=== PATIENT | male | born 1950 | race Caucasian/White ===

== ENCOUNTER 2016-11-30 10:23 | Emergency (ER) | payer OTHER ==
[~2016-11-30] VITALS: Ht 177.8 cm; Wt 97.4 kg
[2016-11-30 10:28] VITALS: BP 118/74; PULSE 72; TEMP 36.6; O2SAT 95; Ht 177.8 cm; Wt 97.4 kg
[2016-11-30] MEDS ORDERED: LISI-725 PO (10:40)
[2016-11-30] MEDS ORDERED: ASPI325T4 PO (10:40)
[2016-11-30] MEDS ORDERED: METO-217 PO (10:40)
[2016-11-30] MEDS ORDERED: ATOR-26 PO (10:40)
[2016-11-30] MEDS ORDERED: CEPH500C2 PO (10:58)
--- NOTE | 2016-11-30 17:31 | EMERGENCY ROOM VISIT NOTE ---
ED Visit Note First contact with patient: 10:45 Chief Complaint: Tick bite. History of Present Illness: Mr. Heard is a 66-year-old white male who ambulates into the ED complaining of a tick bite and skin eruption. Patient reports yesterday he removed a tick from the anterior aspect of the left arm and the left lower quadrant. He believes the tick bite was in bed it in the skin of both areas less than 48 hours. Today he noted some mild increase in swelling and redness in the area where the tick was embedded on the left arm and believes there is an associated bulleyes lesion. Currently he has no associated symptoms and denies fevers, chills, sweats, other skin eruptions, headache, dizziness, lightheadedness, chest pain, shortness of breath, abdominal pain, decreased appetite, nausea/vomiting. Review of Systems: As noted above in history of present illness. 8 body systems were reviewed and found to be negative as noted above. Past Medical History: Unspecified heart disease. Current Medications: Lipitor, Toprol, lisinopril, aspirin. Allergies to Medications: Sulfa. Social History: Patient is not currently employed; he feels safe in his home environment; he admits to tobacco use and denies alcohol use. Physical Examination: Vital Signs: Date Time Temp Pulse Resp B/P Pulse Ox O2 Delivery O2 Flow Rate FiO2 11/30/16 10:28 36.6 72 20 118/74 95 Room Air GENERAL: 66-year-old female in mild to moderate distress due to pain, nontoxic- appearing, afebrile and hemodynamically stable. NEUROLOGICAL: Awake, alert and oriented to person, place and time. Answering questions appropriately and following commands. Normal gait. Good hand eye coordination. No focal motor sensory deficits. SKIN: Warm, dry and pink. Left Lower Quadrant: Shows a small area of erythema that surrounds a scab like structure. There is no lymphangitis. He has not tender to palpation. The skin is not hot to the touch and there does not appear to be any abscess. Left Upper Extremity: Shows a 4 cm zone of erythema just distal to the antecubital fossa. This is indurated but not fluctuant. There is no lymphangitis. The rash does not appear as a bull's-eye lesion. It is mildly tender to palpation and warm to the touch. The skin does not appear grossly cellulitic. HEENT: Atraumatic and normocephalic. THORAX: Lungs sounds are clear to auscultation and equal bilaterally with symmetrical chest wall. HEART: Regular rate and rhythm. No gallops, rubs or murmurs are appreciated. ABDOMEN: Flat, soft and nontender. Positive bowel sounds in all quadrants. No guarding, rigidity or organomegaly. EXTREMITIES: Moves all extremities well on command and with purpose. All distal neurovascular statuses are intact and equal bilaterally. ED Course: Patient is assessed as noted above. Patient's area of erythema on the left arm was demarcated with a pen line. Patient family members were educated about today's findings and instructed on his treatment plan; they verbalizes understanding and agreement with this plan. Clinical Impression: Tick bite. Mild cellulitis of the left arm. Decision-Making: Patient is assessed as noted above. Family members express concerns for possible Lyme's disease but this does not appear to be a Lyme's rash. It appears more cellulitic in nature. He has no somatic complaints at this time. Initially my differential diagnosis I considered myocellulitis but I did consider Lyme's disease as well as allergic hives. Disposition: Patient discharged home in stable condition accompanied by family member; prior to departure he was reassessed and remained pain-free. Plan: Patient was encouraged use ibuprofen or acetaminophen as needed for pain. Patient was prescribed Keflex 500 mg 4 times a day for 10 days. Patient was encouraged to follow-up with family physician or return to the ED in 36-48 hours for recheck. Patient family members were educated on worsening signs of infection and was encouraged to come back to the ED for worsening signs of infection or any new/ concerning symptoms.
== END 2016-11-30 11:05 | disposition home or self-care (01) ==
LOC: C.EDB 10:26 → C.EDC 11:05
DX: L03.114 Cellulitis of left upper limb (principal); S41.152A Open bite of left upper arm, initial encounter; S30.861A Insect bite (nonvenomous) of abdominal wall, initial encounter; W57.XXXA Bitten or stung by nonvenomous insect and other nonvenomous arthropods, initial encounter; Z79.82 Long term (current) use of aspirin; Z79.899 Other long term (current) drug therapy

== ENCOUNTER → 2017-05-07 | Outpatient (CLI) | payer OTHER ==
[~2017-05-07] MED LIST: ASPI325T4 PO; ATOR-26 PO; LISI-725 PO; METO-217 PO
[2017-05-07 12:41] LABS: BASO % 0.9 %; BASO ABS # 0.09 K/uL (0-0.2); COMPLETE YES; HEMATOCRIT 46.9 % (42-52); IG% 0.3 %; LYMPH ABS # 2.59 K/uL (1.2-3.4); MEAN CELL VOLUME 92.9 fL (80-100); MEAN CORPUSCULAR HEMOGLOBIN 30.3 pg (25-34); MEAN CORPUSCULAR HGB CONC 32.6 g/dl (32-36); MEAN PLATELET VOLUME 11.2 fL (7.4-10.4); MONO % 10.1 %; NEUT % 59.7 %; PLATELET COUNT 225 K/uL (130-400); RED BLOOD COUNT 5.05 M/uL (4.7-6.1); WHITE BLOOD COUNT 9.97 K/uL (4.8-10.8)
[2017-05-07 12:54] LABS: ESTIMATED AVERAGE GLUCOSE 148 mg/dl; HA1C FLAG Normal (Normal)
[2017-05-07 13:08] LABS: ALT/SGPT 32 U/L (12-78); AST/SGOT 20 U/L (15-37); BLOOD UREA NITROGEN 18 mg/dl (7-18); BUN/CREATININE RATIO 16.1 (10-20); CALCIUM 9.1 mg/dl (8.5-10.1); CARBON DIOXIDE 29 mmol/L (21-32); CHLORIDE 103 mmol/L (98-107); GLUCOSE 123 mg/dl (70-99); POTASSIUM 4.4 mmol/L (3.5-5.1); SODIUM 137 mmol/L (136-145)
[2017-05-07 13:18] LABS: ALKALINE PHOSPHATASE 109 U/L (45-117); CHOLESTEROL 213 mg/dl (0-200); CHOLESTEROL/HDL RATIO 6.1; HDL CHOLESTEROL 35 mg/dl; PROSTATE SPECIFIC ANTIGEN 0.373 ng/ml (0.000-4.000); TRIGLYCERIDES 576 mg/dl (0-150)
--- NOTE | 2017-05-18 11:39 | CODING QUERY MEDICAL NECESSITY ---
CQSUPPORTING DIAGNOSIS NEEDED A supporting diagnosis is required for the test/procedure performed on this patient in order for us to be reimbursed by the patient's insurance. Please provide a supporting diagnosis for the following test/procedure listed below next to the test name along with your signature. *If there is no additional diagnosis for this patient that would support the following test/procedure please document that below next to the test/procedure. Test(s)/Procedure(s) that require a supporting diagnosis: DOS 05/07/17 PROSTATE SPECIFIC TEST Provider Signature: Date: Thank you Leticia Su [employer] Once completed, please kindly fax back to [phone] For questions please call [phone]
== END | disposition home or self-care (01) ==
LOC: C.LABPVFM 08:20
PROVIDERS: ATTEND Internal Medicine Geriatric Medicine
DX: I25.10 Atherosclerotic heart disease of native coronary artery without angina pectoris (principal); I10 Essential (primary) hypertension; E78.5 Hyperlipidemia, unspecified; E11.9 Type 2 diabetes mellitus without complications; E55.9 Vitamin D deficiency, unspecified; Z12.5 Encounter for screening for malignant neoplasm of prostate

== ENCOUNTER → 2017-11-12 | Outpatient (CLI) | payer OTHER ==
[2017-11-12 13:41] LABS: HEMOGLOBIN A1C 6.8 % (4.5-5.6)
[2017-11-12 14:34] LABS: BLOOD UREA NITROGEN 23 mg/dl (7-18); CALCIUM 9.4 mg/dl (8.5-10.1); CARBON DIOXIDE 30 mmol/L (21-32); CHOLESTEROL 183 mg/dl (0-200); CREATININE 1.13 mg/dl (0.60-1.40); GLUCOSE 125 mg/dl (70-99); POTASSIUM 4.5 mmol/L (3.5-5.1); SODIUM 134 mmol/L (136-145)
[2017-11-12 14:41] LABS: LDL CHOLESTEROL CALCULATED 89 mg/dl
== END | disposition home or self-care (01) ==
LOC: C.LABPVFM 08:44
PROVIDERS: ATTEND Internal Medicine Geriatric Medicine
DX: I25.10 Atherosclerotic heart disease of native coronary artery without angina pectoris (principal); I10 Essential (primary) hypertension; E11.9 Type 2 diabetes mellitus without complications; E78.5 Hyperlipidemia, unspecified; F17.200 Nicotine dependence, unspecified, uncomplicated; Z11.59 Encounter for screening for other viral diseases

== ENCOUNTER 2023-07-20 23:10 | Observation (INO) ==
[2023-07-21 00:27] LABS: Albumin Globulin Ratio 1.5 (0.9-2); Albumin Level 3.7 gm/dl (3.4-5.0); BUN Creatinine Ratio 20.7 (10-20); Bilirubin,Total 0.7 mg/dl (0.2-1.0); Calcium 8.7 mg/dl (8.6-10.3); Creatinine Clr Calc Pharmacy 64.7 ml/min; Est GFR (African American) 75.9 ml/min; Est GFR (Non-African American) 65.5 ml/min; Globulin 2.5 gm/dl (2.5-4.0); Potassium 3.9 mmol/L (3.5-5.1); Total Protein 6.2 gm/dl (6.0-8.3)
[2023-07-21 00:34] LABS: Appearance Urine Cloudy (Clear); Bacteria Urine Automated Negative (Negative); Bilirubin Urine Negative (Negative); Blood Urine 2+ (Negative); Color Urine Dark Yellow; Epithelial Cell Urine Auto >30 /lpf (0-5); Glucose Urine UA Negative (Negative); Ketones Urine Trace (Negative); Leukocyte Esterase Urine Trace (Negative); Nitrite Urine Negative (Negative); Protein Urine 2+ (Negative); RBC Urine Automated 0-4 /hpf (0-4); Specific Gravity Urine 1.026 (1.000-1.030); Urobilinogen Urine Negative (Negative)
[2023-07-21 00:38] LABS: INR 1.1 (0.9-1.1); Partial Thromboplastin Ratio 1.2; Partial Thromboplastin Time 33.3 Seconds (21.0-31.0)
[2023-07-21 00:41] LABS: Basophils # (auto) 0.02 K/uL (0.00-0.20); Basophils % (auto) 0.5 %; Hematocrit (blood only) 43.7 % (42.0-52.0); Hemoglobin 15.2 g/dl (14.0-18.0); Immature Granulocytes # (auto) 0.02 K/uL (0.01-0.20); Immature Granulocytes % (auto) 0.5 %; Lymphocytes # (auto) 0.15 K/uL (1.20-3.40); Lymphocytes % (auto) 3.9 %; Mean Corpuscular Hemoglobin 30.6 pg (25.0-34.0); Mean Corpuscular Hgb Conc 34.8 g/dL (32.0-36.0); Mean Corpuscular Volume 87.9 fL (80.0-100.0); Mean Platelet Volume 12.2 fL (9.4-12.4); Monocytes # (auto) 0.25 K/uL (0.11-0.59); Monocytes % (auto) 6.5 %; Neutrophils # (auto) 3.38 K/uL (1.40-6.50); Neutrophils % (auto) 88.6 %; Platelet Count 37 K/uL (130-400); Platelet Estimate Decreased (Normal); RDW Coefficient of Variation 13.2 % (11.5-14.5); RDW Standard Deviation 42.5 fL (36.4-46.3); Red Blood Count 4.97 M/uL (4.70-6.10); White Blood Count 3.82 K/ul (4.8-10.8)
[2023-07-21] MEDS ORDERED: SODIUM CHLORIDE 0.9% 1,000 ML IV ONE ×2 (01:00→02:51)
[2023-07-21] MEDS ORDERED: ACETAMINOPHEN 500 MG TAB PO STA (01:00)
[2023-07-21] MEDS ORDERED: HYDROCORTISONE SOD SUCCINATE 100 MG/2 ML VIAL IV STA (01:38)
[2023-07-21 02:00] LABS: Procalcitonin 0.55 ng/ml (0-0.5)
[2023-07-21 02:28] LABS: Adenovirus PCR Not Detected (NotDetected); Bordetella parapertussis PCR Not Detected (NotDetected); Bordetella pertussis PCR Not Detected (NotDetected); Chlamydia pneumoniae PCR Not Detected (NotDetected); Coronavirus 229E PCR Not Detected (NotDetected); Coronavirus CoV-2 (COVID19)PCR Not Detected (NotDetected); Coronavirus HKU1 PCR Not Detected (NotDetected); Coronavirus NL63 PCR Not Detected (NotDetected); Coronavirus OC43PCR Not Detected (NotDetected); Human Metapneumovirus PCR Not Detected (NotDetected); Influenza A PCR Not Detected (NotDetected); Influenza B PCR Not Detected (NotDetected); Mycoplasma pneumoniae PCR Not Detected (NotDetected); Parainfluenza Virus 1 PCR Not Detected (NotDetected); Parainfluenza Virus 2 PCR Not Detected (NotDetected); Parainfluenza Virus 3 PCR Not Detected (NotDetected); Parainfluenza Virus 4 PCR Not Detected (NotDetected); Respiratory Syncytial VirusPCR Not Detected (NotDetected); Rhinovirus/Enterovirus PCR Not Detected (NotDetected)
[2023-07-21 02:31] LABS: Lyme Ab IgG w/WB Rflx Negative (Negative); Lyme Ab IgM w/WB Rflx Negative (Negative)
--- NOTE | 2023-07-21 04:11 | History & Physical Report ---
Date of Service July 21, 2023 Assessment & Plan (1) Acute adrenal crisis: Plan: -Addisonian crisis likely precipitated by infectious cause, suspected tickborne illness given clinical history -Borderline hypotensive on admission, hemodynamically stable at present with BP 100s/60s -Hydrocortisone 100 mg IV given in ER, will continue HTC 100 mg IV q8h for now -S/p 2L NSS, continue NSS fluid repletion at maintenance (2) Febrile illness: Plan: -Pt's symptoms appear consistent with tickborne illness profile although initial panel is negative -We will empirically cover with doxycycline 100 mg IV BID + ceftriaxone 2g IV daily for now -UCx, BCx pending -Anaplasma PCR ordered given pt's transaminitis, leukopenia, thrombocytopenia and recent tick bites -Tylenol PRN fever (3) Thrombocytopenia: Plan: -Plts 37 on admission -No signs of acute bleeding at present, Hgb stable -Possibly secondary to tickborne illness causing consumptive coagulopathy vs ITP -Expect improvement with steroids if ITP -Peripheral smear ordered -Monitor CBC (4) Hyponatremia: Plan: -Na 128 on admission -Multifactorial- minimal oral intake for 1+ day and current Addisonian crisis -NSS repletion ongoing -Monitor BMP (5) Leukopenia: Plan: -WBC 3.8 on admission -Possibly due to phagocytic process of tickborne illness -Monitor CBC -Peripheral smear pending (6) Transaminitis: Plan: -AST 67 on admission -Likely reactive transaminitis to acute illness (7) Diabetes mellitus type 2 in obese: Plan: -BSG stable on admission -Does not appear to be on any antiglycemic agents -DM otherwise well controlled, A1C 6.7% in 11/2022 -Lant, SSI- may need dose escalation for steroid hyperglycemia (8) Hypertension: Plan: -BP borderline hypotensive given current adrenal crisis -Holding home lisinopril, metoprolol -Resume antihypertensives as adrenal crisis stabilizes (9) Dyslipidemia: Plan: -Continue atorvastatin (10) Arteriosclerotic coronary artery disease: Plan: -No ACS concern at present -Continue atorvastatin -Holding lisinopril and metoprolol as above -Holding aspirin due to thrombocytopenia (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 Pt sleeping on evaluation, history provided by family at bedside. Pt reportedly had chills on 07/18 and symptoms progressed on 07/19 to include fever w/ Tmax 103 F, fatigue, generalized myalgias, tremors, nonproductive cough, reduced appetite w/ minimal oral intake. Symptoms worsened until family brought him to ER. Pt did not take stress dose steroids during this time. He never had similar symptoms before. Of note, pt has had multiple tick bites since this past summer and family had removed at least 2 ticks within the last month. Pt arrived to ER with borderline BP 100s/60s. Initial evaluation significant for WBC 3.82, Plts 37, Na 128, AST 67, PCT 0.55. Initial tickborne panel negative, RVP negative, CXR unremarkable. UA grossly infected albeit with epithelial cells. ER interventions include Tylenol 1000 mg IV, 2L NSS bolus, hydrocortisone 100 mg IV. Allergies Allergy/AdvReac Type Severity Reaction Status Date / Time amoxicillin Allergy Mild hemorrhoids Verified 07/21/23 08:43 Sulfa (Sulfonamide Allergy Mild nose bleeds Verified 07/21/23 08:43 Antibiotics) Home Medications Medication Instructions Recorded Confirmed Type aspirin 325 mg tablet,delayed 325 mg PO QAM 06/21/19 07/21/23 History release cholecalciferol (vitamin D3) 25 2,000 units PO QAM 09/23/19 07/21/23 History mcg (1,000 unit) capsule hydrocortisone 5 mg tablet 15 mg PO .COMPLEX 10/05/19 07/21/23 History levothyroxine 112 mcg capsule 112 mcg PO DAILY #90 caps 06/13/22 07/21/23 Rx metoprolol succinate 50 mg 50 mg PO QAM #90 tabs 07/29/22 07/21/23 Rx tablet,extended release 24 hr (Toprol XL) atorvastatin 80 mg tablet 80 mg PO QAM #90 tabs 08/04/22 07/21/23 Rx lisinopril 20 mg tablet 10 mg (1/2 x 20 mg) PO QAM #45 tabs 10/13/22 07/21/23 Rx metformin 500 mg tablet,extended See Rx Instructions PO .COMPLEX 12/29/22 07/21/23 Rx release 24 hr #270 tabs Past Med/Surg History Medical History Arteriosclerotic coronary artery disease (~2002) Borderline diabetes Central hypothyroidism Dyslipidemia Hypertension Osteoarthritis Past myocardial infarction (~2002) Pituitary macroadenoma (~09/2019) Vitamin D deficiency Surgical History History of cataract surgery History of hernia repair History of tooth extraction Status post transsphenoidal pituitary resection (~09/2019) Family History Mother Heart disease Myocardial infarction Other No family history of adverse response to anesthesia Denies family history of Ovarian cancer Prostate cancer Breast cancer Colorectal cancer Social History Smoking Status: Current every day smoker Tobacco Type: Cigarettes Age Started Using Tobacco: 16; packs per day: 0.5; Cigarettes Per Day: 20; Second Hand Exposure: Yes ( smokes); Do You Dip or Chew Tobacco: No; Hx Alcohol Use: No Hx Substance Use: No Preferred Language: Georgian Communication Ability: Effective Visual Impairment: Limited Hearing Ability: Hard of Hearing Reservations Clerk Required: No Beliefs That Will Affect Care: None marital status: Current Living Situation: Spouse current occupational status: retired 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 How many Children do You have: 3 Feels Safe at Home: Yes Childhood Exposure to Second-Hand Smoke: No Diet: regular caffeine: Yes Dental Care, Regularly: No Physical Activity Frequency: Does not Exercise Seatbelt Use: never Sunscreen Use: No Assistive Devices: Denture - Upper, Denture - Lower and Glasses Review of Systems Review of Systems: Per HPI/Subjective Physical Exam Physical Exam: General: sleeping comfortably HEENT: no palpable cervical lymphadenopathy CV: RRR, normal S1, S2, no murmurs Resp: CTAB, unlabored respirations Skin: francisco complexion Results & Data Results & Data Vital Signs (Past 12 Hours) Vital Signs Temp Pulse Pulse Resp BP BP Pulse Ox 07/21/23 02:33 37.4 C 07/21/23 02:30 79 21 102/56 L 92 07/21/23 02:00 83 25 H 92 07/21/23 02:00 107/59 L 07/21/23 01:30 125/67 07/21/23 01:30 87 22 93 07/21/23 01:00 104/72 07/21/23 01:00 91 H 17 93 07/21/23 00:30 93 H 23 93 07/21/23 00:30 113/59 L 07/21/23 00:24 39 C H 94 H 20 114/63 92 07/21/23 00:23 92 H 26 H 92 07/21/23 00:23 91 H 07/20/23 23:14 37.8 C H 108 H 20 126/66 96 O2 Del Method 07/21/23 02:33 07/21/23 02:30 07/21/23 02:00 07/21/23 02:00 07/21/23 01:30 07/21/23 01:30 07/21/23 01:00 07/21/23 01:00 07/21/23 00:30 07/21/23 00:30 07/21/23 00:24 Room Air 07/21/23 00:23 07/21/23 00:23 07/20/23 23:14 Room Air Supervising Physician Co-Signing Physician Notes Attending addendum: I have physically seen this patient, have supervised the medical residents activities, and agree with the H&P unless as otherwise noted. Assessment and Plan: Acute adrenal crisis- Underlying trigger probabilities include but not limited to anaplasmosis/of the tickborne illness/ITP/other illness, failure to take stress dosing as outlined by endocrinology Given hydrocortisone 100 mg IV in ED Continue hydrocortisone 100 mg IV every 8 hours Patient status post 2 L normal saline, continue normal saline at 100 mL/h for additional liter Generalized illness- AST 67, platelets 37, sodium 128 and febrile illness, suggestive of anaplasmosis Lyme testing negative Anaplasmosis and babesiosis smear negative at this time Antibody testing for anaplasmosis and VCSS pending Empiric treatment with doxycycline 100 mg IV twice daily and ceftriaxone 2 g IV daily Thrombocytopenia- BioFire negative for viral process Question whether secondary to anaplasmosis Follow serially and ask pathology to review peripheral smear for platelet morphology May need to consult hematology Remaining orders and notations as noted Resident Activity Tracking Resident Involvement: Resident Care Provided Care Provided: Adult Hospital Medicine (8) Hypertension Hypertension type: essential hypertension Qualified Code(s): I10 - Essential (primary) hypertension
--- OUTSIDE RECORDS SUMMARY | 2023-07-21 04:38 | External Medical Summary | Continuity of Care Document ---
Author Name Unknown Organization [address] Address [address] [place] [phone] Care Team Providers Care Nurse Discharge Name Role Phone Rajwinder Bonilla Primary Care Physician [phone] [id number] Date(s): 05/14/23 - 05/14/[address] [place] [address], [facility] [address] [place] [address] [place] [phone] Encounter Diagnosis HTN (hypertension)(Discharge Diagnosis) - 05/13/23 Hypothyroidism(Discharge Diagnosis) - 05/13/23 Panhypopituitarism(Discharge Diagnosis) - 05/13/23 Pituitary macroadenoma(Discharge Diagnosis) - 05/13/23 Body mass index [BMI] 29.0-29.9, adult(Discharge Diagnosis) - 05/14/23 Diabetes mellitus, type II(Discharge Diagnosis) - 05/14/23 Discharge Disposition: Home or Self Care Attending Physician: FRANSISCO Bonilla Shari A Referring Physician: FRANSISCO Bonilla Shari A Allergies, Adverse Reactions, Alerts Substance Reaction Severity Status amoxicillin Not sure Active sulfa drugs Bleeding from nose Mild Active Immunizations Given and Recorded Vaccine Date Status Refusal Reason influenza virus vaccine, inactivated 05/14/23 Give n SARS-CoV-2 (COVID-19) mRNA BNT-162b2 vax 1 05/06/21 Recorded SARS-CoV-2 (COVID-19) mRNA BNT-162b2 vax 2 04/15/21 Recorded tetanus/diphtheria/pertuss, acel (Tdap) 3 05/17/12 Recorded 1Result Comment: 2023-05-12: Historical information-source unspecified 2Result Comment: 2023-05-12: Historical information-source unspecified 3Result Comment: 2023-05-12: Historical information-source unspecified Medications aspirin 325 mg oral delayed release tablet Start: 09/24/19 0:55:00 EST, 1 tab, PO, Daily Start Date: 09/24/19 Status: Ordered atorvastatin 80 mg oral tablet Start: 09/24/19 0:55:00 EST, 1 tab, PO, Daily Start Date: 09/24/19 Status: Ordered hydrocortisone 5 mg oral tablet Start: 12/03/22 8:35:00 EDT, See Instructions, Disp# 450 tab, Refills: 4, TAKE 3 TABLETS BY MOUTH EVERY MORNING , THEN TAKE 1 AND 1/2 TABS AT NOON, Pharmacy: [facility] [id number] Start Date: 12/03/22 Status: Ordered levothyroxine 112 mcg (0.112 mg) oral tablet See Instructions, Disp# 30 tab, Refills: 10, Take 1 tablet by mouth once daily, Brand Medically Necessary, Pharmacy: [id number] Start Date: 10/18/21 Status: Ordered lisinopril 20 mg oral tablet Start: 08/18/22 10:19:00 EST, 45 each, TAKE 1/2 (ONE-HALF) TABLET BY MOUTH IN THE MORNING Start Date: 08/18/22 Status: Ordered MetFORMIN (Eqv-Glucophage XR) 500 mg oral tablet, extended release Start: 05/29/21 13:06:00 EDT Start Date: 05/29/21 Status: Ordered Metoprolol Succinate ER 50 mg oral tablet, extended release Start: 08/18/22 10:19:00 EST, 90 each, TAKE 1 TABLET BY MOUTH ONCE DAILY IN THE MORNING Start Date: 08/18/22 Status: Ordered Vitamin D3 1000 intl units (25 mcg) oral tablet Start: 05/14/23 12:56:00 EDT, 2 tab, PO, Daily Start Date: 05/14/23 Status: Ordered Mental Status 05/14/23 Barriers to Learning one year None evide nt Mandatory Health Literacy Documentation Yes Health Literacy Communication Barriers N ever Primary Language Barbadian Problem List Condition Confirmation Course Effective Dates Status Health Status Informant HTN (hypertension) Confirmed Active Hypothyroidism Confirmed Active Old myocardial infarct Confirmed Active Panhypopituitarism Confirmed Active Pituitary macroadenoma Confirmed Active Smoker Confirmed Active Diabetes mellitus, type II Confirmed Active Diagnosis Diagnosis Type Effective Dates Health Status Clinical Service Informant Hypothyroidism Discharge Diagnosis 05/13/23 Pituitary macroadenoma Discharge Diagnosis 05/13/23 HTN (hypertension) Discharge Diagnosis 05/13/23 Panhypopituitarism Discharge Diagnosis 05/13/23 Body mass index [BMI] 29.0-29.9, adult Discharge Diagnosis 05/14/23 Non-Specified Diabetes mellitus, type II Discharge Diagnosis 05/14/23 Non-Specified Procedures Procedure Date Related Diagnosis Body Site Status Removal 09/17/19 Completed Cataract extraction Compl eted Procedure Completed Tooth extraction Complete d Vital Signs Most recent to oldest [Reference Range]: 1 Height 175.6 cm (05/14/23 12:57 PM) Patient Weight 90.2 kg (05/14/23 12:57 PM) Body Mass Index 29.25 kg/m2 (05/14/23 12:57 PM) Heart Rate 69 bpm (05/14/23 12:57 PM) Respiratory Rate 16 br/min (05/14/23 12:57 PM) Blood Pressure 118/60mmHg (05/14/23 12:57 PM) BP Location # 1 Left Arm (05/14/23 12:57 PM) Social History Social History Type Response Smoking Status Current every day he kym smoker Sex Male Implantable Device List Procedure Provider Procedure Date Device Type Site Unknown Unknown 09/29/19 Unknown Unknown Device Identifier Serial Number Lot or Batch Number Manufacturing Date Expiration Date Distinct Identification Code MRI Safety Implantable Status Assigning Authority Unknown Unknown [id number] Unknown 12/14/21 Unknown Unknown Active Aj garcia Patient Care team information Care Team Personnel Name: FRANSISCO Bonilla Shari A Position: Nurse Pract - Family Med Member Role: Primary Care Provider Address: Address: [address] [place] [address] Care Team Related Persons Name: BYRON ORTIZ Address: home [address] [place] [address], [phone] Name: HENRRY ORTIZ Name: BRAXTON FRIEDMAN
--- OUTSIDE RECORDS SUMMARY | 2023-07-21 04:38 | External Medical Summary | Continuity of Care Document ---
Author Name Unknown Organization [facility] [address] [id number] Care Team Providers Care Probation Agent Name Role Phone Irene Rajwinder Valentín Primary Care Physician [phone] [facility] [id number] Date(s): 05/29/23 - 05/29/23 [facility] [address] [facility] [address] [place] [address] [place] [id number] Discharge Disposition: Home or Self Care Attending Physician: MD Edison, [facility] Allergies, Adverse Reactions, Alerts Substance Reaction Severity [...] 1 AND 1/2 TABS AT NOON, Pharmacy: [id number] Start Date: 12/03/22 Status: Ordered levothyroxine 112 mcg (0.112 mg) oral tablet See Instructions, Disp# 30 tab, Refills: 10, Take 1 tablet by mouth once daily, Brand Medically Necessary, Pharmacy: [id number] Start Date: 10/18/21 Status: Ordered lisinopril 20 [...] PO, Daily Start Date: 05/14/23 Status: Ordered Problem List Condition Confirmation Course Effective Dates Status Health Status Informant HTN (hypertension) Confirmed Active Hypothyroidism Confirmed Active Old myocardial infarct Confirmed Active Panhypopituitarism Confirmed Active Pituitary macroadenoma Confirmed Active Smoker Confirmed Active Diabetes mellitus, type II Confirmed Active Procedures Procedure Date Related Diagnosis Body Site Status Removal 09/17/19 Completed Cataract extraction Compl eted Procedure Completed Tooth extraction Complete d Social History Social History Type Response Smoking Status Current every day he kym smoker Sex Male Implantable Device List Procedure Provider Procedure Date Device Type Site Unknown Unknown 09/29/19 Unknown Unknown Device Identifier Serial Number Lot or Batch Number Manufacturing Date Expiration Date Distinct Identification Code MRI Safety Implantable Status Assigning Authority Unknown Unknown [id number] Unknown 12/14/21 Unknown Unknown Active Prashantk radha Patient Care team information Care Team Personnel Name: FRANSISCO Bonilla Shari A Position: Nurse Pract - Family Med Member Role: Primary Care Provider Address: Address: [address] [place] [address] [place] Care Team Related Persons Name: BYRON ORTIZ Address: home [address] [place] [address], [phone] Name: HENRRY ORTIZ Name: BRAXTON FRIEDMAN
--- OUTSIDE RECORDS SUMMARY | 2023-07-21 04:38 | External Medical Summary | Continuity of Care Document ---
Author Name Unknown Organization [facility] [address] [id number] Care Team Providers Care Sod Stripper Name Role Phone Scott Aguilar Primary Care Physician [phone] [id number] Date(s): 02/11/23 - 02/11/23 [facility] [address] [facility] [address] [address] Discharge Disposition: Home or Self Care Attending Physician: MD Edison, [facility] Referring Physician: DO Aguilar Brian R Allergies, Adverse Reactions, Alerts Substance Reaction Severity Status amoxicillin Not sure Active sulfa drugs Bleeding from nose Mild Active Medications aspirin 325 mg oral delayed release tablet Start: 09/24/19 0:55:00 EST, 1 tab, PO, Daily Start Date: 09/24/19 Status: Ordered atorvastatin 80 mg oral tablet Start: 09/24/19 0:55:00 EST, 1 tab, PO, Daily Start Date: 09/24/19 Status: Ordered dexamethasone 4 mg/mL injectable solution Start: 07/22/22 12:05:00 EST, See Instructions, Disp# 1 each, Refills: 0, 4 mg IM for stress dose (when acutely ill/adrenal crisis), Pharmacy: [id number] Start Date: 07/22/22 Status: Ordered doxycycline hyclate 100 mg oral capsule Start: 08/18/22 10:19:00 EST, 2 each, TAKE 2 CAPSULES BY MOUTH A ONE-TIME DOSE Start Date: 08/18/22 Status: Ordered hydrocortisone 5 mg oral tablet Start: 12/03/22 8:35:00 EDT, See Instructions, Disp# 450 tab, Refills: 4, TAKE 3 TABLETS BY MOUTH EVERY MORNING , THEN TAKE 1 AND 1/2 TABS AT NOON, Pharmacy: [id number] Start Date: 12/03/22 Status: Ordered levothyroxine 112 mcg (0.112 mg) oral tablet See Instructions, Disp# 30 tab, Refills: 10, Take 1 tablet by mouth once daily, Brand Medically Necessary, Pharmacy: [id number] Start Date: 10/18/21 Status: Ordered lisinopril 10 mg oral tablet Start: 09/24/19 0:55:00 EST, 1 tab, PO, Daily Start Date: 09/24/19 Status: Ordered lisinopril 20 mg oral tablet Start: 08/18/22 10:19:00 EST, 45 each, TAKE 1/2 (ONE-HALF) TABLET BY MOUTH IN THE MORNING Start Date: 08/18/22 Status: Ordered MetFORMIN (Eqv-Glucophage XR) 500 mg oral tablet, extended release Start: 05/29/21 13:06:00 EDT Start Date: 05/29/21 Status: Ordered metoprolol succinate 50 mg oral tablet, extended release Start: 09/24/19 0:55:00 EST, 1 tab, PO, Daily Start Date: 09/24/19 Status: Ordered Metoprolol Succinate ER 50 mg oral tablet, extended release Start: 08/18/22 10:19:00 EST, 90 each, TAKE 1 TABLET BY MOUTH ONCE DAILY IN THE MORNING Start Date: 08/18/22 Status: Ordered Problem List Condition Confirmation Course Effective Dates Status Health Status Informant HTN (hypertension) Confirmed Active Hypothyroidism Confirmed Active Old myocardial infarct Confirmed Active Panhypopituitarism Confirmed Active Pituitary macroadenoma Confirmed Active Smoker Confirmed Active Procedures Procedure Date Related Diagnosis Body Site Status Procedure Completed Removal Completed Social History Social History Type Response Smoking Status Current every day he kym smoker Sex Male Implantable Device List Procedure Provider Procedure Date Device Type Site Unknown Unknown 09/29/19 Unknown Unknown Device Identifier Serial Number Lot or Batch Number Manufacturing Date Expiration Date Distinct Identification Code MRI Safety Implantable Status Assigning Authority Unknown Unknown [id number] Unknown 12/14/21 Unknown Unknown Active Prashantk essencen Patient Care team information Care Team Personnel Name: DO Aguilar Brian R Position: Referring Member Role: Primary Care Provider Address: Address: [facility] [address] Care Team Related Persons Name: BYRON ORTIZ Address: [address], [id number] Name: HENRRY ORTIZ Name: BRAXTON FRIEDMAN
[2023-07-21] MEDS ORDERED: GLUCAGON FOR INJ 1 MG VIAL SQ PRN (05:23)
[2023-07-21] MEDS ORDERED: ACETAMINOPHEN 500 MG TAB PO PRN (05:23)
[2023-07-21] MEDS ORDERED: SODIUM CHLORIDE 0.9% 1,000 ML IV SCH (05:23)
[2023-07-21] MEDS ORDERED: CARBOHYDRATES FOR HYPOGLYCEMIA PO PRN (05:23)
[2023-07-21] MEDS ORDERED: DEXTROSE 50% 50 ML SYRINGE IV PRN (05:23)
[2023-07-21] MEDS ORDERED: GLUCOSE 10 TAB/TUBE PO PRN (05:23)
[2023-07-21] MEDS ORDERED: GLUCOSE 40% GEL 15 GM TUBE PO PRN (05:23)
[2023-07-21] MEDS ORDERED: cefTRIAXone SODIUM 2,000 MG in DEXTROSE 5 % MINI-B 50 ML IV SCH (06:00)
[2023-07-21 06:20] LABS: Albumin Globulin Ratio 1.4 (0.9-2); Albumin Level 3.2 gm/dl (3.4-5.0); BUN Creatinine Ratio 18.6 (10-20); Bilirubin,Total 0.6 mg/dl (0.2-1.0); Creatinine Clr Calc Pharmacy 70.4 ml/min; Est GFR (African American) 84.1 ml/min; Est GFR (Non-African American) 72.6 ml/min; Globulin 2.3 gm/dl (2.5-4.0); Potassium 4.1 mmol/L (3.5-5.1); Total Protein 5.5 gm/dl (6.0-8.3)
--- NOTE | 2023-07-21 06:53 | XRay Report ---
XR chest 1V not portable HISTORY: illness COMPARISON: Chest 09/23/2019. FINDINGS: No pneumothorax. No pleural effusions. There are low lung volumes. No new focal lung consol idations to suggest a pneumonia. No evidence for pulmonary edema. The heart remains enlarged. There a re calcifications within the aortic knob. Degenerative changes again noted within the shoulders. IMPRESSION: No significant change compared to the prior study. No acute process. ACT 112: Negative or not required by law. Electronically signed by: Thee Little M.D. 07/21/2023 6:52 AM
[2023-07-21] MEDS: LEVOTHYROXINE SODIUM 112 MCG TABLET PO SCH (07:00)
[2023-07-21] MEDS: DOXYCYCLINE HYCLATE 100 MG in DEXTROSE 5% MINI-B 100 ML IV SCH ×2 (07:00→17:42)
[2023-07-21 07:04] LABS: Hematocrit (blood only) 39.7 % (42.0-52.0); Hemoglobin 13.8 g/dl (14.0-18.0); Mean Corpuscular Hemoglobin 30.8 pg (25.0-34.0); Mean Corpuscular Hgb Conc 34.8 g/dL (32.0-36.0); Mean Corpuscular Volume 88.6 fL (80.0-100.0); Mean Platelet Volume 12.1 fL (9.4-12.4); Platelet Count 29 K/uL (130-400); RDW Coefficient of Variation 13.3 % (11.5-14.5); RDW Standard Deviation 43.5 fL (36.4-46.3); Red Blood Count 4.48 M/uL (4.70-6.10); White Blood Count 3.36 K/ul (4.8-10.8)
--- NOTE | 2023-07-21 07:13 | Hospitalist Progress Note ---
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: Plan (1) Acute adrenal crisis: -Addisonian crisis likely precipitated by infectious cause, suspected tickborne illness given clinical history -Borderline hypotensive on admission, hemodynamically stable at present with BP 100s/60s -Hydrocortisone 100 mg IV given in ER, will continue HTC 100 mg IV q8h for now -S/p 2L NSS, continue NSS fluid repletion at maintenance (2) Febrile illness: -Pt's symptoms appear consistent with tickborne illness profile although initial panel is negative -We will empirically cover with doxycycline 100 mg IV BID + ceftriaxone 2g IV daily for now -UCx, BCx pending -Anaplasma PCR ordered given pt's transaminitis, leukopenia, thrombocytopenia and recent tick bites -Tylenol PRN fever (3) Thrombocytopenia: -Plts 37 on admission, 29 in AM post-admission -No signs of acute bleeding at present, Hgb stable -Possibly secondary to tickborne illness causing consumptive coagulopathy vs ITP -Expect improvement with steroids if ITP -Peripheral smear ordered -Monitor CBC (4) Hyponatremia: -Na 128 on admission -Multifactorial- minimal oral intake for 1+ day and current Addisonian crisis -NSS repletion ongoing -Monitor BMP (5) Leukopenia: -WBC 3.8 on admission -Possibly due to phagocytic process of tickborne illness -Monitor CBC -Peripheral smear pending (6) Transaminitis: -AST 67 on admission -Likely reactive transaminitis to acute illness FENGI: DM2 Code status: Full DVT prophylaxis: SCDs, deferring chemoprophylaxis due to thrombocytopenia Isolation: None Unit: PCU Disposition planning: Likely home Admission and Anticipated Discharge Date Admission Date: July 21, 2023 Results & Data Results & Data Vital Signs (Past 12 Hours) Vital Signs Temp Pulse Pulse Resp BP BP Pulse Ox 07/21/23 05:30 71 19 07/21/23 05:23 70 07/21/23 05:00 79 19 07/21/23 04:30 77 18 107/75 07/21/23 04:00 77 16 12/05/23 04:00 100/67 07/21/23 03:30 75 21 07/21/23 03:30 112/69 07/21/23 03:00 99/61 L 07/21/23 03:00 73 20 07/21/23 02:33 37.4 C 07/21/23 02:30 79 21 102/56 L 92 07/21/23 02:00 83 25 H 92 07/21/23 02:00 107/59 L 07/21/23 01:30 125/67 07/21/23 01:30 87 22 93 07/21/23 01:00 104/72 07/21/23 01:00 91 H 17 93 07/21/23 00:30 93 H 23 93 07/21/23 00:30 113/59 L 07/21/23 00:24 39 C H 94 H 20 114/63 92 07/21/23 00:23 92 H 26 H 92 07/21/23 00:23 91 H 07/20/23 23:14 37.8 C H 108 H 20 126/66 96 O2 Del Method 07/21/23 05:30 07/21/23 05:23 07/21/23 05:00 07/21/23 04:30 07/21/23 04:00 07/21/23 04:00 07/21/23 03:30 07/21/23 03:30 07/21/23 03:00 07/21/23 03:00 07/21/23 02:33 07/21/23 02:30 07/21/23 02:00 07/21/23 02:00 07/21/23 01:30 07/21/23 01:30 07/21/23 01:00 07/21/23 01:00 07/21/23 00:30 07/21/23 00:30 07/21/23 00:24 Room Air 07/21/23 00:23 07/21/23 00:23 07/20/23 23:14 Room Air Resident Activity Tracking Resident Involvement: Resident Care Provided Care Provided: Adult Hospital Medicine (7) Hypertension Hypertension type: essential hypertension Qualified Code(s): I10 - Essential (primary) hypertension
[2023-07-21 07:36] LABS: Anaplasmosis Smear(Rpt to DOH) Pos for Anaplasma; Basophils # (auto) 0.02 K/uL (0.00-0.20); Basophils % (auto) 0.6 %; Giant Platelets 1+; Immature Granulocytes # (auto) 0.02 K/uL (0.01-0.20); Immature Granulocytes % (auto) 0.6 %; Lymphocytes # (auto) 0.21 K/uL (1.20-3.40); Lymphocytes % (auto) 6.3 %; Neutrophils # (auto) 2.91 K/uL (1.40-6.50); Neutrophils % (auto) 86.5 %; Toxic Vacuolation 1+
[2023-07-21] MEDS: ATORVASTATIN 40 MG TAB PO SCH (07:53)
--- NOTE | 2023-07-21 09:00 | Emergency Department Note ---
Impression & Plan Acute adrenal crisis, Thrombocytopenia, Acute hyponatremia, Febrile illness, acute Admit to the [facility] ED Provider Note NAME: SUSI ORTIZ AGE: 73 SEX: Male INFORMANT: Patient ED PROVIDER(S): Dorcas Nation DO CHIEF COMPLAINT:fever and chills PLAN: Disposition: Admit to the [facility] MEDICAL DECISION MAKING: This is a 73-year-old male patient with a history of adrenal insufficiency who presents to the emergency department with worsening fever, chills and imbalance over the past 48 hours. Patient was seen by his PCP earlier today and tested for COVID and flu which was negative. Family became more concerned tonight when his chills seem to worsen. The patient did not take his stress dose of steroids or use his injectable Florinef. Laboratory testing here revealed significant leukopenia with a white blood cell count of 3.8. He is hyponatremic with a sodium of 128. Glucose was 163. He is thrombocytopenic. Urinalysis appears to be contaminated with no obvious signs of infection. Chest x-ray is unremarkable. Patient does give a history that he spends a lot of time in the cast and has removed multiple ticks off his body. We did obtain Lyme testing which was negative but I have ordered anaplasmosis testing patient was given IV hydrocortisone for adrenal crisis. Care/management discussed with: business analytics manager, [facility] Triage Nursing notes: Reviewed and agree with them. Vital Signs: reviewed and unremarkable Additional History obtained from: Patient's and daughter Chronic Medical/Social Conditions affecting care: Pituitary removal resulting in adrenal insufficiency Differential Diagnosis: Adrenal crisis, sepsis, COVID-19, influenza, Lyme disease, anaplasmosis Diagnostics, independently interpreted by me: ECG: Normal sinus rhythm at a rate of [address] segment elevation or signs of ischemia. No ectopy. Cardiac Monitoring: Normal sinus rhythm at 97 Imaging studies: Chest x-ray: No acute pulm infiltrates or consolidation as per my independent interpretation HPI: 73 year old Male arrives for evaluation of fever and chills. Over the past 48 hours, the patient developed fever, chills and rigors. became concerned tonight because the patient has a history of adrenal insufficiency and was noted to be hypotensive with a blood pressure 100/60 and has not been drinking fluids. PAST MEDICAL HISTORY: See Below, PAST SURGICAL HISTORY: See Below, SOCIAL HISTORY: See Below, HOME MEDICATIONS: See list ALLERGIES: See list VITALS: See Below PHYSICAL EXAMINATION: HEENT: Head - normocephalic and atraumatic. Pupils are equal, round, and reactive to light. Extraocular eye muscles are intact, and sclera are anicteric. Nose - moist nasal mucosa without discharge. Mouth - moist buccal mucosa. Oropharynx is nonerythematous and there is no tonsillar exudate or edema noted. Neck: Supple; no cervical lymphadenopathy Heart: Regular rate and rhythm. There is a normal S1 and S2 with no murmurs, clicks, or gallops appreciated. Lungs: Clear to auscultation bilaterally with no wheezes, rales, or rhonchi. Abdomen: Soft, completely nontender, nondistended, with good bowel sounds. There are no palpable pulsatile masses or hepatosplenomegaly. There is no guarding, rigidity, or rebound noted. Extremities: No evidence of cyanosis, clubbing, or edema. There are easily palpable peripheral pulses. Skin: warm and dry with good turgor and no rashes. Emergency department treatment: environmental monitoring specialist, IV normal saline bolus, IV hydrocortisone Emergency department course: The patient was evaluated in room C9. A complete history and physical was performed. An IV lock was initiated and labs were drawn as above. The patient was bolused with IV normal saline solution. He was given a stress dose of IV hydrocortisone. A twelve-lead EKG was obtained. An order was placed for continuous cardiac monitoring. The patient was in a normal sinus rhythm at a rate of 97. A portable chest x-ray was performed. A urine specimen was obtained. Lyme testing and anaplasmosis testing were obtained. I discussed the case with the [facility] hospitalist and they will evaluate for further inpatient care. Past Med/Surg History Medical History Arteriosclerotic coronary artery disease (~2002) Borderline diabetes Central hypothyroidism Dyslipidemia Hypertension Osteoarthritis Past myocardial infarction (~2002) Pituitary macroadenoma (~09/2019) Vitamin D deficiency Surgical History History of cataract surgery History of hernia repair History of tooth extraction Status post transsphenoidal pituitary resection (~09/2019) Family History Mother Heart disease Myocardial infarction Other No family history of adverse response to anesthesia Denies family history of Ovarian cancer Prostate cancer Breast cancer Colorectal cancer Social History Smoking Status: Current every day smoker Tobacco Type: Cigarettes Age Started Using Tobacco: 16; packs per day: 0.5; Cigarettes Per Day: 20; Second Hand Exposure: Yes ( smokes); Do You Dip or Chew Tobacco: No; Hx Alcohol Use: No Hx Substance Use: No Preferred Language: [place]orese Communication Ability: Effective Visual Impairment: Limited Hearing Ability: Hard of Hearing Vegetable Inspector Required: No Beliefs That Will Affect Care: None marital status: Current Living Situation: Spouse current occupational status: retired 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 How many Children do You have: 3 Feels Safe at Home: Yes Childhood Exposure to Second-Hand Smoke: No Diet: regular caffeine: Yes Dental Care, Regularly: No Physical Activity Frequency: Does not Exercise Seatbelt Use: never Sunscreen Use: No Assistive Devices: None Allergies Allergies Allergy/AdvReac Type Severity Reaction Status Date / Time amoxicillin Allergy Mild hemorrhoids Verified 07/21/23 08:43 Sulfa (Sulfonamide Allergy Mild nose bleeds Verified 07/21/23 08:43 Antibiotics) Home Meds Home Medications Medication Instructions Recorded Confirmed aspirin 325 mg tablet,delayed 325 mg PO QAM 06/21/19 07/21/23 release cholecalciferol (vitamin D3) 25 2,000 units PO QAM 09/23/19 07/21/23 mcg (1,000 unit) capsule hydrocortisone 5 mg tablet 15 mg PO .COMPLEX 10/05/19 07/21/23 Previous Rx's Medication Instructions Recorded levothyroxine 112 mcg capsule 112 mcg PO DAILY #90 caps 06/13/22 metoprolol succinate 50 mg 50 mg PO QAM #90 tabs 07/29/22 tablet,extended release 24 hr (Toprol XL) atorvastatin 80 mg tablet 80 mg PO QAM #90 tabs 08/04/22 lisinopril 20 mg tablet 10 mg (1/2 x 20 mg) PO QAM #45 tabs 10/13/22 metformin 500 mg tablet,extended See Rx Instructions PO .COMPLEX 12/29/22 release 24 hr #270 tabs doxycycline hyclate 100 mg capsule 100 mg PO BID #25 caps 07/22/23 hydrocortisone 5 mg tablet 5 mg PO UD #18 tabs 07/22/23 Results & Data (ED) Vital Signs Vital Signs - 24 hr 07/20/23 23:14 07/21/23 00:23 07/21/23 00:23 Temperature 37.8 C H Temperature Source Temporal Artery Scan Pulse Rate 108 H 91 H 92 H Pulse Rate [Finger] Pulse Rate from SpO2 Sensor 92 H Pulse Rhythm Regular Pulse Strength Normal Respiratory Rate 20 26 H Respiratory Effort / Characteristics Non-Labored Spontaneous Respiratory Depth Normal Respiratory Pattern Regular Blood Pressure 126/66 Blood Pressure [Left Arm] Blood Pressure Mean 86 Blood Pressure Mean [Left Arm] Blood Pressure Position Sitting Pulse Oximetry 96 92 Oxygen Delivery Method Room Air Sepsis Recent Fever Within 48 Hours Yes Sepsis New/Unexplained Change in Mental Status N/A Sepsis Action Taken by Nursing No Action Required 07/21/23 00:24 07/21/23 00:30 07/21/23 00:30 Temperature 39 C H Temperature Source Oral Pulse Rate 93 H Pulse Rate [Finger] 94 H Pulse Rate from SpO2 Sensor 92 H Pulse Rhythm Pulse Strength Respiratory Rate 20 23 Respiratory Effort / Characteristics Non-Labored Spontaneous Respiratory Depth Normal Respiratory Pattern Regular Blood Pressure 113/59 L Blood Pressure [Left Arm] 114/63 Blood Pressure Mean 74 Blood Pressure Mean [Left Arm] 80 Blood Pressure Position Pulse Oximetry 92 93 Oxygen Delivery Method Room Air Sepsis Recent Fever Within 48 Hours Sepsis New/Unexplained Change in Mental Status Sepsis Action Taken by Nursing 07/21/23 01:00 07/21/23 01:00 07/21/23 01:30 Temperature Temperature Source Pulse Rate 91 H 87 Pulse Rate [Finger] Pulse Rate from SpO2 Sensor 93 H 87 Pulse Rhythm Pulse Strength Respiratory Rate 17 22 Respiratory Effort / Characteristics Respiratory Depth Respiratory Pattern Blood Pressure 104/72 Blood Pressure [Left Arm] Blood Pressure Mean 73 Blood Pressure Mean [Left Arm] Blood Pressure Position Pulse Oximetry 93 93 Oxygen Delivery Method Sepsis Recent Fever Within 48 Hours Sepsis New/Unexplained Change in Mental Status Sepsis Action Taken by Nursing 07/21/23 01:30 07/21/23 02:00 07/21/23 02:00 Temperature Temperature Source Pulse Rate 83 Pulse Rate [Finger] Pulse Rate from SpO2 Sensor 83 Pulse Rhythm Pulse Strength Respiratory Rate 25 H Respiratory Effort / Characteristics Respiratory Depth Respiratory Pattern Blood Pressure 125/67 107/59 L Blood Pressure [Left Arm] Blood Pressure Mean 89 75 Blood Pressure Mean [Left Arm] Blood Pressure Position Pulse Oximetry 92 Oxygen Delivery Method Sepsis Recent Fever Within 48 Hours Sepsis New/Unexplained Change in Mental Status Sepsis Action Taken by Nursing 07/21/23 02:30 07/21/23 02:33 07/21/23 03:00 Temperature 37.4 C Temperature Source Oral Pulse Rate 79 73 Pulse Rate [Finger] Pulse Rate from SpO2 Sensor 80 73 Pulse Rhythm Pulse Strength Respiratory Rate 21 20 Respiratory Effort / Characteristics Respiratory Depth Respiratory Pattern Blood Pressure 102/56 L Blood Pressure [Left Arm] Blood Pressure Mean 71 Blood Pressure Mean [Left Arm] Blood Pressure Position Pulse Oximetry 92 Oxygen Delivery Method Sepsis Recent Fever Within 48 Hours Sepsis New/Unexplained Change in Mental Status Sepsis Action Taken by Nursing 07/21/23 03:00 07/21/23 03:30 07/21/23 03:30 Temperature Temperature Source Pulse Rate 75 Pulse Rate [Finger] Pulse Rate from SpO2 Sensor Pulse Rhythm Pulse Strength Respiratory Rate 21 Respiratory Effort / Characteristics Respiratory Depth Respiratory Pattern Blood Pressure 99/61 L 112/69 Blood Pressure [Left Arm] Blood Pressure Mean 66 79 Blood Pressure Mean [Left Arm] Blood Pressure Position Pulse Oximetry Oxygen Delivery Method Sepsis Recent Fever Within 48 Hours Sepsis New/Unexplained Change in Mental Status Sepsis Action Taken by Nursing 07/21/23 04:00 07/21/23 04:00 Temperature Temperature Source Pulse Rate 77 Pulse Rate [Finger] Pulse Rate from SpO2 Sensor Pulse Rhythm Pulse Strength Respiratory Rate 16 Respiratory Effort / Characteristics Respiratory Depth Respiratory Pattern Blood Pressure 100/67 Blood Pressure [Left Arm] Blood Pressure Mean 75 Blood Pressure Mean [Left Arm] Blood Pressure Position Pulse Oximetry Oxygen Delivery Method Sepsis Recent Fever Within 48 Hours Sepsis New/Unexplained Change in Mental Status Sepsis Action Taken by Nursing Laboratory Data 07/22/23 08:06 07/22/23 08:06 Lab Results 07/20/23 07/20/23 07/20/23 Range/Units 23:45 23:45 23:45 WBC 3.82 L (4.8-10.8) K/ul RBC 4.97 (4.70-6.10) M/uL Hgb 15.2 (14.0-18.0) g/dl Hct 43.7 (42.0-52.0) % MCV 87.9 (80.0-100.0) fL MCH 30.6 (25.0-34.0) pg MCHC 34.8 (32.0-36.0) g/dL RDW Std Deviation 42.5 (36.4-46.3) fL RDW Coeff of Monico 13.2 (11.5-14.5) % Plt Count 37 L (130-400) K/uL MPV 12.2 (9.4-12.4) fL Immature Gran % (Auto) 0.5 % Neut % (Auto) 88.6 % Lymph % (Auto) 3.9 % Pike % (Auto) 6.5 % Eos % (Auto) 0.0 % Baso % (Auto) 0.5 % Neut # (Auto) 3.38 (1.40-6.50) K/uL Lymph # (Auto) 0.15 L (1.20-3.40) K/uL Pike # (Auto) 0.25 (0.11-0.59) K/uL Eos # (Auto) 0.00 (0.00-0.50) K/uL Baso # (Auto) 0.02 (0.00-0.20) K/uL Immature Gran # (Auto) 0.02 (0.01-0.20) K/uL Platelet Estimate Decreased L (Normal) PT 12.0 (9.0-12.0) Seconds INR 1.1 (0.9-1.1) APTT 33.3 H (21.0-31.0) Seconds PTT Ratio 1.2 Sodium 128 L (136-145) mmol/L Potassium 3.9 (3.5-5.1) mmol/L Chloride 97 L (98-107) mmol/L Carbon Dioxide 23 (21-32) mmol/L Anion Gap 8 (3-11) BUN 23 (6-23) mg/dl Creatinine 1.11 (0.6-1.4) mg/dl Est Cr Clr Drug Dosing 64.7 ml/min Est GFR ( Amer) 75.9 ml/min Est GFR (Non-Af Amer) 65.5 ml/min BUN/Creatinine Ratio 20.7 H (10-20) Glucose 163 H (70-99(Fasting)) mg/dl Lactate (0.4-2.0) mmol/L Calcium 8.7 (8.6-10.3) mg/dl Total Bilirubin 0.7 (0.2-1.0) mg/dl AST 67 H (13-39) U/L ALT 43 (7-52) U/L Alkaline Phosphatase 90 (34-104) U/L Total Protein 6.2 (6.0-8.3) gm/dl Albumin 3.7 (3.4-5.0) gm/dl Globulin 2.5 (2.5-4.0) gm/dl Albumin/Globulin Ratio 1.5 (0.9-2) Procalcitonin 0.55 H (0-0.5) ng/ml Urine Color Urine Appearance (Clear) Urine pH (4.5-7.5) Ur Specific [place] (1.000-1.030) Urine Protein (Negative) Urine Glucose (UA) (Negative) Urine Ketones (Negative) Urine Blood (Negative) Urine Nitrite (Negative) Urine Bilirubin (Negative) Urine Urobilinogen (Negative) Ur Leukocyte Esterase (Negative) Urine WBC (Auto) (0-5) /hpf Urine RBC (Auto) (0-4) /hpf U Hyaline Cast (Auto) (0-5) /lpf U Epithel Cells (Auto) (0-5) /lpf Urine Bacteria (Auto) (Negative) Urine Yeast Adenovirus (PCR) (NotDetected) Anaplasma Smear See Comment A. phagocytophilum DNA Babesia Smear See Comment B. pertussis DNA (PCR) (NotDetected) B.parapertussis DNA PCR (NotDetected) Lyme Disease IgG Ab Negative Cancelled (Negative) Lyme Disease IgM Ab Negative Cancelled (Negative) C. pneumoniae DNA (PCR) (NotDetected) Coronavirus OC43 (PCR) (NotDetected) Coronavirus HKU1 (PCR) (NotDetected) Coronavirus 229E (PCR) (NotDetected) SARS-CoV-2 (PCR) (NotDetected) Coronavirus NL63 (PCR) (NotDetected) Human Metapneumovir PCR (NotDetected) Influenza Type A (PCR) (NotDetected) Influenza Type B (PCR) (NotDetected) M. pneumoniae (PCR) (NotDetected) Parainfluenza 1 (PCR) (NotDetected) Parainfluenza 2 (PCR) (NotDetected) Parainfluenza 3 (PCR) (NotDetected) Parainfluenza 4 (PCR) (NotDetected) RSV (PCR) (NotDetected) Entero/Rhino (PCR) (NotDetected) 07/20/23 07/21/23 07/21/23 Range/Units 23:50 01:12 01:50 WBC (4.8-10.8) K/ul RBC (4.70-6.10) M/uL Hgb (14.0-18.0) g/dl Hct (42.0-52.0) % MCV (80.0-100.0) fL MCH (25.0-34.0) pg MCHC (32.0-36.0) g/dL RDW Std Deviation (36.4-46.3) fL RDW Coeff of Monico (11.5-14.5) % Plt Count (130-400) K/uL MPV (9.4-12.4) fL Immature Gran % (Auto) % Neut % (Auto) % Lymph % (Auto) % Pike % (Auto) % Eos % (Auto) % Baso % (Auto) % Neut # (Auto) (1.40-6.50) K/uL Lymph # (Auto) (1.20-3.40) K/uL Pike # (Auto) (0.11-0.59) K/uL Eos # (Auto) (0.00-0.50) K/uL Baso # (Auto) (0.00-0.20) K/uL Immature Gran # (Auto) (0.01-0.20) K/uL Platelet Estimate (Normal) PT (9.0-12.0) Seconds INR (0.9-1.1) APTT (21.0-31.0) Seconds PTT Ratio Sodium (136-145) mmol/L Potassium (3.5-5.1) mmol/L Chloride (98-107) mmol/L Carbon Dioxide (21-32) mmol/L Anion Gap (3-11) BUN (6-23) mg/dl Creatinine (0.6-1.4) mg/dl Est Cr Clr Drug Dosing ml/min Est GFR ( Amer) ml/min Est GFR (Non-Af Amer) ml/min BUN/Creatinine Ratio (10-20) Glucose (70-99(Fasting)) mg/dl Lactate 1.9 (0.4-2.0) mmol/L Calcium (8.6-10.3) mg/dl Total Bilirubin (0.2-1.0) mg/dl AST (13-39) U/L ALT (7-52) U/L Alkaline Phosphatase (34-104) U/L Total Protein (6.0-8.3) gm/dl Albumin (3.4-5.0) gm/dl Globulin (2.5-4.0) gm/dl Albumin/Globulin Ratio (0.9-2) Procalcitonin (0-0.5) ng/ml Urine Color Dark Yellow Urine Appearance Cloudy A (Clear) Urine pH 5.0 (4.5-7.5) Ur Specific [place] 1.026 (1.000-1.030) Urine Protein 2+ H (Negative) Urine Glucose (UA) Negative (Negative) Urine Ketones Trace H (Negative) Urine Blood 2+ H (Negative) Urine Nitrite Negative (Negative) Urine Bilirubin Negative (Negative) Urine Urobilinogen Negative (Negative) Ur Leukocyte Esterase Trace H (Negative) Urine WBC (Auto) 1-5 (0-5) /hpf Urine RBC (Auto) 0-4 (0-4) /hpf U Hyaline Cast (Auto) 5-10 H (0-5) /lpf U Epithel Cells (Auto) >30 H (0-5) /lpf Urine Bacteria (Auto) Negative (Negative) Urine Yeast Not Reportable Adenovirus (PCR) Not Detected (NotDetected) Anaplasma Smear Cancelled A. phagocytophilum DNA Cancelled Babesia Smear Cancelled B. pertussis DNA (PCR) Not Detected (NotDetected) B.parapertussis DNA PCR Not Detected (NotDetected) Lyme Disease IgG Ab (Negative) Lyme Disease IgM Ab (Negative) C. pneumoniae DNA (PCR) Not Detected (NotDetected) Coronavirus OC43 (PCR) Not Detected (NotDetected) Coronavirus HKU1 (PCR) Not Detected (NotDetected) Coronavirus 229E (PCR) Not Detected (NotDetected) SARS-CoV-2 (PCR) Not Detected (NotDetected) Coronavirus NL63 (PCR) Not Detected (NotDetected) Human Metapneumovir PCR Not Detected (NotDetected) Influenza Type A (PCR) Not Detected (NotDetected) Influenza Type B (PCR) Not Detected (NotDetected) M. pneumoniae (PCR) Not Detected (NotDetected) Parainfluenza 1 (PCR) Not Detected (NotDetected) Parainfluenza 2 (PCR) Not Detected (NotDetected) Parainfluenza 3 (PCR) Not Detected (NotDetected) Parainfluenza 4 (PCR) Not Detected (NotDetected) RSV (PCR) Not Detected (NotDetected) Entero/Rhino (PCR) Not Detected (NotDetected) Administered Medications Discontinued Medications Acetaminophen (Acetaminophen 500 Mg Tab) 1,000 mg PO NOW STA Stop: 07/21/23 01:01 Last Admin: 07/21/23 01:10 Dose: 1,000 mg Documented By: DAVIS Acetaminophen (Acetaminophen 500 Mg Tab) 1,000 mg PO Q8H PRN PRN Reason: pain/fever Stop: 08/20/23 05:22 Last Admin: 07/21/23 09:14 Dose: 1,000 mg Documented By: VIKI Atorvastatin Calcium (Atorvastatin 40 Mg Tab) [facility] Stop: 08/20/23 08:59 Last Admin: 07/22/23 08:06 Dose: 80 mg Documented By: Admin: 07/21/23 07:53 Dose: 80 mg Documented By: STEFFI Hydrocortisone Sodium Succinate (Hydrocortisone Sod Succinate 100 Mg/2 Ml Vial) 100 mg IV NOW STA Stop: 07/21/23 01:39 Last Admin: 07/21/23 02:00 Dose: 100 mg Documented By: DAVIS Sodium Chloride (Nss) 1,000 mls @ 999 mls/hr IV .Q1H1M ONE Stop: 07/21/23 02:00 Last Infusion: 07/21/23 02:08 Dose: Infused Documented By: Admin: 07/21/23 01:10 Dose: 999 mls/hr Documented By: DAVIS Sodium Chloride (Nss) 1,000 mls @ 999 mls/hr IV .Q1H1M ONE Stop: 07/21/23 03:51 Last Infusion: 07/21/23 04:24 Dose: Infused Documented By: Admin: 07/21/23 03:09 Dose: 999 mls/hr Documented By: DAVIS Sodium Chloride (Nss) 1,000 mls @ 125 mls/hr IV .Q8H YESSICA Stop: 07/21/23 13:22 Last Infusion: 07/21/23 15:15 Dose: Infused Documented By: Admin: 07/21/23 06:16 Dose: 125 mls/hr Documented By: DAVIS Doxycycline Hyclate 100 mg/ (Dextrose) 100 mls @ 50 mls/hr IV Q12H YESSICA Stop: 07/23/23 05:59 Last Infusion: 07/22/23 07:55 Dose: Infused Documented By: Admin: 07/22/23 05:28 Dose: 50 mls/hr Documented By: Infusion: 07/21/23 19:58 Dose: Infused Documented By: Admin: 07/21/23 17:42 Dose: 50 mls/hr Documented By: Infusion: 07/21/23 09:03 Dose: Infused Documented By: Admin: 07/21/23 07:00 Dose: 50 mls/hr Documented By: DAVIS Ceftriaxone Sodium 2,000 mg/ (Dextrose) 50 mls @ 100 mls/hr IV Q24H [facility]; Protocol Stop: 07/23/23 05:59 Last Infusion: 07/21/23 07:00 Dose: Infused Documented By: Admin: 07/21/23 06:16 Dose: 100 mls/hr Documented By: DAVIS Hydrocortisone Sodium (Succinate 100 mg/ Syringe) 2 mls @ 4 mls/min IV Q8H YESSICA Stop: 08/20/23 09:59 Last Admin: 07/22/23 08:06 Dose: 4 mls/min Documented By: Admin: 07/22/23 02:46 Dose: 4 mls/min Documented By: Admin: 07/21/23 17:42 Dose: 4 mls/min Documented By: Admin: 07/21/23 10:50 Dose: 4 mls/min Documented By: STEFFI Hydrocortisone Sodium (Succinate 50 mg/ Syringe) 1 mls @ 4 mls/min IV NOW STA Stop: 07/22/23 13:22 Last Admin: 07/22/23 13:59 Dose: 4 mls/min Documented By: AFUA Insulin Aspart (Insulin Aspart Per Unit Charge) 0 units SC ACHS [facility] Stop: 08/20/23 07:29 Last Admin: 07/22/23 11:26 Dose: 1 units Documented By: AFUA Co-signed By: KENA Admin: 07/22/23 07:20 Dose: Not Given Documented By: AFUA Co-signed By: VERÓNICA Admin: 07/21/23 20:53 Dose: 2 units Documented By: AVERY Co-signed By: BIENVENIDO Admin: 07/21/23 17:10 Dose: Not Given Documented By: STEFFI Co-signed By: VÍCTOR Admin: 07/21/23 13:03 Dose: 1 units Documented By: STEFFI Co-signed By: ANNA Admin: 07/21/23 09:39 Dose: 2 units Documented By: STEFFI Co-signed By: AM Insulin Glargine (Lantus Per Unit Charge) 5 units SQ BID [facility] Stop: 08/20/23 08:59 Last Admin: 07/22/23 08:06 Dose: 5 units Documented By: AFUA Co-signed By: KASSY Admin: 07/21/23 20:53 Dose: 5 units Documented By: AVERY Co-signed By: BIENVENIDO Admin: 07/21/23 09:39 Dose: 5 units Documented By: STEFFI Co-signed By: AM Levothyroxine Sodium (Levothyroxine Sodium 112 Mcg Tablet) 112 mcg PO DAILYBB [facility] Stop: 08/20/23 06:29 Last Admin: 07/22/23 05:54 Dose: 112 mcg Documented By: Admin: 07/21/23 07:00 Dose: 112 mcg Documented By: DAVIS Imaging Data Radiologist's Impression: Chest X-Ray 07/20/23 23:22 XR chest 1V not portable HISTORY: illness COMPARISON: Chest 09/23/2019. FINDINGS: No pneumothorax. No pleural effusions. There are low lung volumes. No new focal lung consolidations to suggest a pneumonia. No evidence for pulmonary edema. The heart remains enlarged. There are calcifications within the aortic knob. Degenerative changes again noted within the shoulders. IMPRESSION: No significant change compared to the prior study. No acute process. ACT 112: Negative or not required by law. Electronically signed by: Thee Little M.D. 07/21/2023 6:52 AM Discharge Plan Visit Data Chief Complaint: Illness Stated Complaint: FEVER, HYPOTENSION ED Provider: Dorcas Nation Discharge Problem: Acute adrenal crisis, Thrombocytopenia, Acute hyponatremia, Febrile illness, acute Patient Disposition: Admitted As Inpatient Discharge Instructions Interventions: ED Discharge Assessment Last Done: 07/21/23 05:22
[2023-07-21] MEDS: INSULIN ASPART PER UNIT CHARGE SC SCH ×4 (09:39→20:53)
[2023-07-21] MEDS: LANTUS PER UNIT CHARGE SQ SCH ×2 (09:39→20:53)
[2023-07-21] MEDS ORDERED: HYDROCORTISONE SOD SUCCINATE 100 MG/2 ML VIAL IV SCH (10:00)
[2023-07-21] MEDS: HYDROCORTISONE SOD 100 MG in SYRINGE 0 ML IV SCH ×2 (10:50→17:42)
--- NOTE | 2023-07-21 13:47 | Electrocardiogram Report ---
Test Reason : Blood Pressure : / mmHG Vent. Rate : 099 BPM Atrial Rate : 099 BPM P-R Int : 146 ms QRS Dur : 082 ms QT Int : 322 ms P-R-T Axes : 047 016 075 degrees QTc Int : 413 ms Normal sinus rhythm Low voltage QRS Cannot rule out Anterior infarct (cited on or before 23-SEP-2019) Abnormal ECG When compared with ECG of 23-SEP-2019 15:47, Vent. rate has increased BY 34 BPM Questionable change in initial forces of Septal leads Confirmed by Mark Boston ([id number]) on 07/21/2023 1:46:47 PM Referred By: REFERRED SELF Confirmed By:Mark Boston
--- NOTE | 2023-07-21 16:56 | Hospitalist Progress Note ---
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 due to positive blood smear, clinical history, recent tick bites, and lab findings of transaminitis, leukopenia, and thrombocytopenia - Borderline hypotensive on admission; currently hemodynamically stable; BP of 129/69 on 7:50 am today - Hydrocortisone 100 mg IV given in ER, will continue HTC 100 mg IV q8h for now - Will monitor to symptoms for improvement; will reconsider HTC dosing based on symptoms - Continue sodium chloride IV fluid repletion (2) Febrile illness: Plan: - Positive blood smear for Anaplasmoses and clinical history aligns with anaplasmoses - In ED, empirically covered with doxycycline 100 mg IV BID + ceftriaxone 2g IV daily - We will continue with IV doxycycline 100 mg IV BID now that the blood smear has come back positive for anaplasmoses - Tylenol is being given PRN for fever; temperature at 7:50 am was 36.8 C or 98.24 F - We spoke about preventive measures to avoid future tick bites as well such as wearing productive clothing and conducting thorough tick checks after outdoor activities (3) Thrombocytopenia: Plan: - WBC 3.8 on admission, 3.36 now - RBC was 4.97 on admission but is now low at 4.48 - Platelet count was 37 on admission and 29 in the morning post-admission - Likely secondary to anaplasmoses infection causing consumptive coagulopathy - No signs of acute bleeding at present, hemoglobin is stable - Will continue to monitor CBC (4) Leukopenia: Plan: See above. (5) Transaminitis: Plan: - AST 67 on admission, now 61 (high) - Likely due to Anaplasmoses - Will continue to monitor Plan Code: Full Code Nutrition: Normal DVT: Movement Discharge: Hopefully 12/6 to home Admission and Anticipated Discharge Date Admission Date: July 21, 2023 Supervising Physician Co-Signing Physician Notes I personally examined the patient and verified all sosa points of history and exam, discussed case, and agree with decision making with Dr Herring and Ebenezer Mack MS2 feeling better since about ~10-1030 this AM. walking better, no further fevers. dtr present - ansewred all questions to the best of my ability and to her / patient's satisfaction vitals noted, in general he is awake and alert pleasant no distress. HEENT normocephalic atraumatic mucous membranes moist. Breathing unlabored no accessory muscle use good effort. Skin shows no rashes no pallor or icterus. Neuro without focal deficits. Anaplasmosissymptomatically appears to be improving already, obviously labs will lag behind. Continue doxycycline. Anticipate improvement. Acute adrenal insufficiencyin the context of chronic panhypopituitarism and physiologic stress. Apparently his was concerned about giving him too much medicine as it relates to stress dosing during this acute illness. I discussed with patient/daughter that given the natural course of anaplasmosis, it was very likely he was going to end up admitted whether he was using stress testing or not just due to the nature of the infection, but reviewed stress dosing, rationale, etc. for future potentially lesser infections, and to encourage him to stress dose to mitigate the overall impact of physiologic stress/illnesses on his wellbeing. Otherwise as above Subjective 73 yo M with PMH of adrenal insufficiency, DM2, panhypopituitarism, and hypothyroidism who presented to ER today at 3 am with fever. Patient had chills, fever, blurred vision, and dizziness on 07/19; the family said these were the same symptoms he had before he had his pituitary gland removed. On 07/20, patient had fever with a maximum temperature of 103, fatigue, generalized myalgias, tremors, nonproductive cough, and reduced appetite with minimal oral intake. He went to the PCP on 07/20 and tested negative for COVID-19/flu. During these two days, patient did not take stress dose steroids. During the summer, patient had multiple tick bites, and his family removed at least 2 ticks within the month. In the ER, they gave Tylenol 1000 mg IV, 2L NSS bolus, hydrocortisone 100 mg IV, doxycycline IV, and ceftriaxone IV. Labs on 07/20 showed low WBC, low Plt count, low sodium, and high AST. Initial tickborne panel and respiratory viral panel were negative. CXR was unremarkable. This morning at roughly 8:30, he reported having a fever and shivering. He is not as dizzy as he was at home and is able to walk to the bathroom without falling. Blood smear was positive this morning for anaplasmoses. Labs this morning showed low WBC (3.36), low RBC (4.48), low Hgb (13.8), low Hct (39.7), low Plt count (29), low sodium (134), high AST (61), low total protein (5.5), albumin (3.2), and globulin (2.3). As of 10:30 am, patient reported feeling much better. Review of Systems Review of Systems: Per HPI; positive for fevers and chills Physical Exam Physical Exam: General: In no acute distress HEENT: No palpable cervical lymphadenopathy CV: RRR, normal S1/S2, no murmurs/rubs/gallops Resp: CTAB, unlabored respirations, no wheezing/rales Skin: redder complexion Results & Data Results & Data Vital Signs (Past 12 Hours) Vital Signs Temp Pulse Pulse Resp BP BP Pulse Ox 07/21/23 14:31 36.6 C 77 20 128/73 94 07/21/23 07:50 36.8 C 89 21 129/69 93 07/21/23 07:21 74 07/21/23 05:30 71 19 07/21/23 05:23 70 07/21/23 05:00 79 19 07/21/23 04:30 77 18 107/75 07/21/23 04:00 77 16 07/21/23 04:00 100/67 07/21/23 03:30 75 21 07/21/23 03:30 112/69 O2 Del Method 07/21/23 14:31 Room Air 07/21/23 07:50 Room Air 07/21/23 07:21 07/21/23 05:30 07/21/23 05:23 07/21/23 05:00 07/21/23 04:30 07/21/23 04:00 07/21/23 04:00 07/21/23 03:30 07/21/23 03:30
--- NOTE | 2023-07-21 18:41 | Billing Data ---
Date of Service July 21, 2023 Coding Level of Care Code 89788 SUB INP/OBS CARE
[2023-07-22] MEDS: HYDROCORTISONE SOD 100 MG in SYRINGE 0 ML IV SCH ×2 (02:46→08:06)
--- NOTE | 2023-07-22 05:20 | Billing Data ---
Date of Service July 22, 2023 Coding Level of Care Code 97819 INT INP/OBS CARE
[2023-07-22] MEDS: DOXYCYCLINE HYCLATE 100 MG in DEXTROSE 5% MINI-B 100 ML IV SCH (05:28)
[2023-07-22] MEDS: LEVOTHYROXINE SODIUM 112 MCG TABLET PO SCH (05:54)
--- NOTE | 2023-07-22 07:17 | Hospitalist Progress Note ---
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 Patient had chills, fever, blurred vision, and dizziness on 07/19; the family said these were the same symptoms he had before he had his pituitary gland removed. On 07/20, patient had fever with a maximum temperature of 103, fatigue, generalized myalgias, tremors, nonproductive cough, and reduced appetite with minimal oral intake. He went to the PCP on 07/20 and tested negative for COVID-19/flu. During these two days, patient did not take stress dose steroids. During the summer, patient had multiple tick bites, and his family removed at least 2 ticks within the month. In the ER, they gave Tylenol 1000 mg IV, 2L NSS bolus, hydrocortisone 100 mg IV, doxycycline IV, and ceftriaxone IV. Labs on 07/20 showed low WBC, low Plt count, low sodium, and high AST. Initial tickborne panel and respiratory viral panel were negative. CXR was unremarkable. This morning at roughly 8:30, he reported having a fever and shivering. He is not as dizzy as he was at home and is able to walk to the bathroom without falling. Blood smear was positive this morning for anaplasmoses. Labs this morning showed low WBC (3.36), low RBC (4.48), low Hgb (13.8), low Hct (39.7), low Plt count (29), low sodium (134), high AST (61), low total protein (5.5), albumin (3.2), and globulin (2.3). As of 10:30 am, patient reported feeling much better. Review of Systems Constitutional: no fever, no chills, no body aches and no fatigue Respiratory: + cough; no dyspnea Cardiovascular: no chest pain, no orthopnea and no palpitations Gastrointestinal: no abdominal pain, no nausea, no vomiting, no constipation and no diarrhea/loose stools Genitourinary: no dysuria, no urinary frequency or no hematuria Musculoskeletal: no back pain, no joint pain and no myalgia Physical Exam Constitutional: WD/WN, vitals as above Respiratory: normal respiratory effort; no respiratory distress and no retractions Auscultation: + rhonchi (r. posterior upper jesus) Cardiovascular: RRR, no murmur, no edema Gastrointestinal (Abdomen): normal bowel sounds, soft, nontender, no hepatospl enomegaly Psychiatric: A+Ox3, euthymic affect Results & Data Results & Data Vital Signs (Past 12 Hours) Vital Signs Temp Pulse Resp BP Pulse Ox O2 Del Method 07/22/23 03:07 36.9 C 72 20 129/66 91 Room Air 07/22/23 00:00 36.6 C 71 18 133/72 90 Room Air 07/21/23 20:40 37.5 C 83 18 158/79 H 95 Room Air 07/21/23 19:25 36.8 C 79 22 134/73 93 Room Air (7) Hypertension Hypertension type: essential hypertension Qualified Code(s): I10 - Essential (primary) hypertension
[2023-07-22] MEDS: INSULIN ASPART PER UNIT CHARGE SC SCH ×2 (07:20→11:26)
[2023-07-22] MEDS: ATORVASTATIN 40 MG TAB PO SCH (08:06)
[2023-07-22] MEDS: LANTUS PER UNIT CHARGE SQ SCH (08:06)
[2023-07-22 08:38] LABS: Hematocrit (blood only) 40.5 % (42.0-52.0); Hemoglobin 14.4 g/dl (14.0-18.0); Mean Corpuscular Hemoglobin 30.4 pg (25.0-34.0); Mean Corpuscular Hgb Conc 35.6 g/dL (32.0-36.0); Mean Corpuscular Volume 85.6 fL (80.0-100.0); Platelet Count 31 K/uL (130-400); RDW Coefficient of Variation 13.2 % (11.5-14.5); RDW Standard Deviation 41.1 fL (36.4-46.3); Red Blood Count 4.73 M/uL (4.70-6.10); White Blood Count 3.82 K/ul (4.8-10.8)
[2023-07-22 08:52] LABS: Albumin Globulin Ratio 1.3 (0.9-2); Albumin Level 3.5 gm/dl (3.4-5.0); BUN Creatinine Ratio 17.5 (10-20); Bilirubin,Total 0.6 mg/dl (0.2-1.0); Calcium 8.9 mg/dl (8.6-10.3); Creatinine Clr Calc Pharmacy 74.1 ml/min; Est GFR (African American) 89.4 ml/min; Est GFR (Non-African American) 77.1 ml/min; Globulin 2.7 gm/dl (2.5-4.0); Magnesium 1.9 mg/dl (1.7-2.4); Potassium 3.6 mmol/L (3.5-5.1); Total Protein 6.2 gm/dl (6.0-8.3)
[2023-07-22 09:27] LABS: Basophils # (auto) 0.02 K/uL (0.00-0.20); Basophils % (auto) 0.5 %; Immature Granulocytes # (auto) 0.02 K/uL (0.01-0.20); Immature Granulocytes % (auto) 0.5 %; Lymphocytes # (auto) 1.14 K/uL (1.20-3.40); Lymphocytes % (auto) 29.8 %; Monocytes # (auto) 0.31 K/uL (0.11-0.59); Monocytes % (auto) 8.1 %; Neutrophils # (auto) 2.33 K/uL (1.40-6.50); Neutrophils % (auto) 61.1 %
--- NOTE | 2023-07-22 12:23 | Discharge Summary ---
Date of Service July 22, 2023 Admission HPI Per Admitting Provider 73 yo M patient with a history of adrenal insufficiency and multiple tike bites who presented to the ER on 07/21 with fever, dizziness, and chills who has has a positive blood smear for anaplasmoses. His lab values on 07/21 showed pancytopenia, hyponatremia, and transaminitis. Yesterday, he was treated with hydrocortisone 100 mg IV q8h and sodium chloride IV fluid repletion. He was empirically treated in the ED with doxycycline 100 mg IV BID + ceftriaxone 2g IV daily. When the blood smear came back positive for anaplasmoses, he was switched to IV doxycycline 100 mg IV for a 14 day course. Tylenol was given PRN for fever. This morning, he reported feeling a lot better. He was negative for fever, chills, shivering, dizziness, blurred vision, and skin rash. He is able to walk to the bathroom without falling. We walked and he was doing well. He reported having more energy than yesterday. Principal Diagnosis anaplasmosis, acute adrenal crisis Discharge Exam Constitutional Well appearing; in no acute distress Neck No lymphadenopathy Respiratory CTAB, bilateral breathing effort, no wheezing Cardiovascular RRR, normal S1/S2, no m/r/g Gastrointestinal (Abdomen) +BS, nontender, nondistended Skin No rashes or lesions noted Neurologic A&Ox3 Discharge Data Allergies Allergy/AdvReac Type Severity Reaction Status Date / Time amoxicillin Allergy Mild hemorrhoids Verified 07/21/23 08:43 Sulfa (Sulfonamide Allergy Mild nose bleeds Verified 07/21/23 08:43 Antibiotics) Consultations 07/21/23 02:53 ED Decision to Admit Stat Ordered Studies Laboratory Results WBC 3.82 K/ul (4.8-10.8) L 07/22/23 08:06 RBC 4.73 M/uL (4.70-6.10) 07/22/23 08:06 Hgb 14.4 g/dl (14.0-18.0) 07/22/23 08:06 Hct 40.5 % (42.0-52.0) L 07/22/23 08:06 MCV 85.6 fL (80.0-100.0) 07/22/23 08:06 MCH 30.4 pg (25.0-34.0) 07/22/23 08:06 MCHC 35.6 g/dL (32.0-36.0) 07/22/23 08:06 RDW Std Deviation 41.1 fL (36.4-46.3) 07/22/23 08:06 RDW Coeff of Monico 13.2 % (11.5-14.5) 07/22/23 08:06 Plt Count 31 K/uL (130-400) L 07/22/23 08:06 MPV 13.0 fL (9.4-12.4) H 07/22/23 08:06 Immature Gran % (Auto) 0.5 % 07/22/23 08:06 Neut % (Auto) 61.1 % 07/22/23 08:06 Lymph % (Auto) 29.8 % 07/22/23 08:06 [place] % (Auto) 8.1 % 07/22/23 08:06 Eos % (Auto) 0.0 % 07/22/23 08:06 Baso % (Auto) 0.5 % 07/22/23 08:06 Neut # (Auto) 2.33 K/uL (1.40-6.50) 07/22/23 08:06 Lymph # (Auto) 1.14 K/uL (1.20-3.40) L 07/22/23 08:06 [place] # (Auto) 0.31 K/uL (0.11-0.59) 07/22/23 08:06 Eos # (Auto) 0.00 K/uL (0.00-0.50) 07/22/23 08:06 Baso # (Auto) 0.02 K/uL (0.00-0.20) 07/22/23 08:06 Immature Gran # (Auto) 0.02 K/uL (0.01-0.20) 07/22/23 08:06 Toxic Vacuolation 1+ 07/21/23 05:49 Platelet Estimate Decreased (Normal) L 07/20/23 23:45 Giant Platelets 1+ 07/21/23 05:49 Peripher Smr Path Cons 07/21/23 05:49 PT 12.0 Seconds (9.0-12.0) 07/20/23 23:45 INR 1.1 (0.9-1.1) 07/20/23 23:45 APTT 33.3 Seconds (21.0-31.0) H 07/20/23 23:45 PTT Ratio 1.2 07/20/23 23:45 Sodium 135 mmol/L (136-145) L 07/22/23 08:06 Potassium 3.6 mmol/L (3.5-5.1) 07/22/23 08:06 Chloride 100 mmol/L (98-107) 07/22/23 08:06 Carbon Dioxide 26 mmol/L (21-32) 07/22/23 08:06 Anion Gap 9 (3-11) 07/22/23 08:06 BUN 17 mg/dl (6-23) 07/22/23 08:06 Creatinine 0.97 mg/dl (0.6-1.4) 07/22/23 08:06 Est Cr Clr Drug Dosing 74.1 ml/min 07/22/23 08:06 Est GFR ( Amer) 89.4 ml/min 07/22/23 08:06 Est GFR (Non-Af Amer) 77.1 ml/min 07/22/23 08:06 BUN/Creatinine Ratio 17.5 (10-20) 07/22/23 08:06 Glucose 197 mg/dl (70-99(Fasting)) H 07/22/23 08:06 POC Glucose 176 mg/dl (70-99) H 07/22/23 11:18 Lactate 1.9 mmol/L (0.4-2.0) 07/21/23 01:50 Calcium 8.9 mg/dl (8.6-10.3) 07/22/23 08:06 Magnesium 1.9 mg/dl (1.7-2.4) 07/22/23 08:06 Total Bilirubin 0.6 mg/dl (0.2-1.0) 07/22/23 08:06 AST 66 U/L (13-39) H 07/22/23 08:06 ALT 51 U/L (7-52) 07/22/23 08:06 Alkaline Phosphatase 102 U/L (34-104) 07/22/23 08:06 Total Protein 6.2 gm/dl (6.0-8.3) 07/22/23 08:06 Albumin 3.5 gm/dl (3.4-5.0) 07/22/23 08:06 Globulin 2.7 gm/dl (2.5-4.0) 07/22/23 08:06 Albumin/Globulin Ratio 1.3 (0.9-2) 07/22/23 08:06 Procalcitonin 0.55 ng/ml (0-0.5) H 07/20/23 23:45 Urine Color Dark Yellow 07/20/23 23:50 Urine Appearance Cloudy (Clear) A 07/20/23 23:50 Urine pH 5.0 (4.5-7.5) 07/20/23 23:50 Ur Specific [place] 1.026 (1.000-1.030) 07/20/23 23:50 Urine Protein 2+ (Negative) H 07/20/23 23:50 Urine Glucose (UA) Negative (Negative) 07/20/23 23:50 Urine Ketones Trace (Negative) H 07/20/23 23:50 Urine Blood 2+ (Negative) H 07/20/23 23:50 Urine Nitrite Negative (Negative) 07/20/23 23:50 Urine Bilirubin Negative (Negative) 07/20/23 23:50 Urine Urobilinogen Negative (Negative) 07/20/23 23:50 Ur Leukocyte Esterase Trace (Negative) H 07/20/23 23:50 Urine WBC (Auto) 1-5 /hpf (0-5) 07/20/23 23:50 Urine RBC (Auto) 0-4 /hpf (0-4) 07/20/23 23:50 U Hyaline Cast (Auto) 5-10 /lpf (0-5) H 07/20/23 23:50 U Epithel Cells (Auto) >30 /lpf (0-5) H 07/20/23 23:50 Urine Bacteria (Auto) Negative (Negative) 07/20/23 23:50 Urine Yeast Not Reportable 07/20/23 23:50 Adenovirus (PCR) Not Detected (NotDetected) 07/21/23 01:12 Anaplasma Smear See Comment A 07/21/23 05:49 A. phagocytophilum DNA Cancelled 07/21/23 01:50 Anaplasma Comment Pos for Anaplasma 07/21/23 05:49 Babesia Smear Cancelled 07/21/23 01:50 B. pertussis DNA (PCR) Not Detected (NotDetected) 07/21/23 01:12 B.parapertussis DNA PCR Not Detected (NotDetected) 07/21/23 01:12 Lyme Disease IgG Ab Cancelled 07/20/23 23:45 Lyme Disease IgG Ab Negative (Negative) 07/20/23 23:45 Lyme Disease IgM Ab Cancelled 07/20/23 23:45 Lyme Disease IgM Ab Negative (Negative) 07/20/23 23:45 C. pneumoniae DNA (PCR) Not Detected (NotDetected) 07/21/23 01:12 Coronavirus OC43 (PCR) Not Detected (NotDetected) 07/21/23 01:12 Coronavirus HKU1 (PCR) Not Detected (NotDetected) 07/21/23 01:12 Coronavirus 229E (PCR) Not Detected (NotDetected) 07/21/23 01:12 SARS-CoV-2 (PCR) Not Detected (NotDetected) 07/21/23 01:12 Coronavirus NL63 (PCR) Not Detected (NotDetected) 07/21/23 01:12 Human Metapneumovir PCR Not Detected (NotDetected) 07/21/23 01:12 Influenza Type A (PCR) Not Detected (NotDetected) 07/21/23 01:12 Influenza Type B (PCR) Not Detected (NotDetected) 07/21/23 01:12 M. pneumoniae (PCR) Not Detected (NotDetected) 07/21/23 01:12 Parainfluenza 1 (PCR) Not Detected (NotDetected) 07/21/23 01:12 Parainfluenza 2 (PCR) Not Detected (NotDetected) 07/21/23 01:12 Parainfluenza 3 (PCR) Not Detected (NotDetected) 07/21/23 01:12 Parainfluenza 4 (PCR) Not Detected (NotDetected) 07/21/23 01:12 RSV (PCR) Not Detected (NotDetected) 07/21/23 01:12 Entero/Rhino (PCR) Not Detected (NotDetected) 07/21/23 01:12 Impressions Chest X-Ray 07/20/23 23:22 XR chest 1V not portable HISTORY: illness COMPARISON: Chest 09/23/2019. FINDINGS: No pneumothorax. No pleural effusions. There are low lung volumes. No new focal lung consolidations to suggest a pneumonia. No evidence for pulmonary edema. The heart remains enlarged. There are calcifications within the aortic knob. Degenerative changes again noted within the shoulders. IMPRESSION: No significant change compared to the prior study. No acute process. ACT 112: Negative or not required by law. Electronically signed by: Thee Little M.D. 07/21/2023 6:52 AM Hospital Course (1) Anaplasmosis: -presented with febrile illness. +anaplasmosis smear. -started on doxycycline and Rocephin in ED. Continued with doxycycline. Will treat for total 14 days. -Elevated LFTs, pancytopenia - consistent with infection. Showing some improvement with treatment. Repeat labs in 1 wk. F/u PCP. -blood and urine cx no growth thus far (2) Acute adrenal crisis: - Addisonian crisis 2/2 infection as above. - stress dosed steroids in hospital with hydrocortisone 100mg IV q8h. - on discharge will double home morning dose of hydrocortisone for next two days (30mg in am, 15mg at noon). Then return to normal home dose. (3) Febrile illness: (4) Thrombocytopenia: (5) Leukopenia: (6) Transaminitis: Plan Total Time Total Time Spent Total Time Spent (In Minutes): <30 Discharge Plan Discharge Items Patient Disposition: Home - Self-Care Reason For Visit: FEVER Discharge Diagnosis: Anaplasmosis, adrenal crisis Activity: Resume your previous activity Non-emergency contact: Primary Care Provider Call non-emergency contact if: your symptoms worsen Follow-up/Referrals: Rajwinder Bonilla CRNP [Primary Care Provider] - Diet: Regular Ambulatory Orders: Complete Blood Count with Diff (Routine) Timeframe: 1 Week Location: Determined by Patient Ordered By: Ronal Barbour Comprehensive Metabolic Panel (Routine) Timeframe: 1 Week Location: Determined by Patient Ordered By: Ronal Barbour Addtl Attending Provider Instructions: As discussed at bedside, your symptoms are consistent with 2 diagnoses. The first being anaplasmosis which is a tickborne illness. The second being an acute adrenal crisis secondary to your adrenal insufficiency. For the anaplasmosis we have been treating you with an antibiotic now has doxycycline in the hospital and you have seen much improvement. We will continue this antibiotic in the outpatient setting for a total of 14 days. He should continue to see improvement. This infection did cause some abnormalities in your labs so we have provided you with lab orders to be repeated next week to look for improvement. As for the adrenal crisis, in the hospital we treated you with stress dose steroids which is a much higher dose than you take at home. We will begin to wean you down without to your home dose. For the next 2 days you will take twice the amount of your hydrocortisone home regimen and then come Thursday you can return back to your normal home regimen. This prescription has been sent to your pharmacy and dosing instructions will be provided. You should follow-up with your primary care provider in the next 1 to 2 weeks to discuss the repeat lab work at which time they can determine whether or not more lab work is necessary. Pending Studies at Discharge: No Stand-Alone Forms: [facility] Medications and DC Order Prescriptions: New doxycycline hyclate 100 mg capsule 100 mg PO BID Qty: 25 0RF Rx Instructions: next dose evening of 07/22/23 hydrocortisone 5 mg tablet 5 mg PO UD Qty: 18 0RF Rx Instructions: Double home dose on 07/23/23 and 07/24/23. This dose will be 30 mg by mouth in the morning and 15 mg by mouth at noon. Then on 07/25/23 return to home dose (15 mg by mouth in the morning and 7.5 mg by mouth at noon) Continued hydrocortisone 5 mg tablet 15 mg PO .COMPLEX Rx Instructions: 15 mg by mouth in the morning and 7.5mg by mouth at noon metoprolol succinate [Toprol XL] 50 mg tablet extended release 24 hr 50 mg PO QAM Qty: 90 3RF atorvastatin 80 mg tablet 80 mg PO QAM Qty: 90 3RF lisinopril 20 mg tablet 10 mg PO QAM Qty: 45 3RF metformin 500 mg tablet extended release 24 hr See Rx Instructions PO .COMPLEX Qty: 270 3RF Rx Instructions: Take 500mg by mouth in the morning and 1000mg by mouth with dinner levothyroxine 112 mcg capsule 112 mcg PO DAILY Qty: 90 3RF aspirin 325 mg tablet,delayed release (DR/EC) 325 mg PO QAM cholecalciferol (vitamin D3) 1,000 unit capsule 2,000 units PO QAM Discharge Orders: Discharge Order (Routine); Ordered 07/22/23 Ordered By: Ronal Barbour Admission Data Admit Date/Time: 07/21/23 04:26 Attending Provider: Ham Naidu Admit Provider: Petey Zhang Primary Care Provider: Rajwinder Bonilla Other Providers: Jamel Kenney; Candido Wong Other Interventions: Discharge Summary Assessment (RN) Last Done: 07/22/23 14:04 Supervising Physician Co-Signing Physician Notes I personally examined the patient and verified all sosa points of history and exam, discussed case, and agree with decision making with Dr Barbour and Ebenezer Mack MS2 Continues to feel well, afebrile, eating well, getting up and around well, feels he would be safe at home. Family present, answered all questions the best my ability and to their satisfaction. vitals noted, in general he is awake and alert pleasant no distress. HEENT normocephalic atraumatic mucous membranes moist. Breathing unlabored no accessory muscle use good effort. Skin shows no rashes no pallor or icterus. Neuro without focal deficits. Anaplasmosissymptomatically showing good and steady improvement already, obviously labs will lag behind. Continue doxycycline. Follow-up CBC, CMP next week, and track back to normal. Acute adrenal insufficiencyin the context of chronic panhypopituitarism and physiologic stress. Discussed stress dosing. Will have him take double his home dose for the next 2 days, and then resume home dosing. Outpatient endocrine follow-up. Otherwise as above
[2023-07-22] MEDS ORDERED: HYDROCORTISONE SOD 50 MG in SYRINGE 0 ML IV STA (13:21)
--- NOTE | 2023-07-22 18:12 | Billing Data ---
Date of Service July 22, 2023 Coding Level of Care Code 57012 IN/OBS DISCH 30 MIN/LESS
[2023-07-24 05:15] LABS: Babesia microti DNA Not Detected (Not Detected)
== END 2023-07-22 14:15 | disposition home or self-care (01) | DRG 644 ==
LOC: ED 23:10 → EDINP 07-21 04:26 → SUATTDRO 07-21 04:26 → INTOOBSV 07-21 04:26 → 2S 07-21 05:22